=== PATIENT | male | born 1945 | race Caucasian/White ===

== ENCOUNTER → 2019-10-22 13:55 | Outpatient (BNVA) | payer MEDICARE, OTHER, SELFPAY | PROVIDERS: Family Provider Family Medicine; PCP Family Medicine; Referring Provider Licensed Practical Nurse; Visit Provider Psychiatry & Neurology Neurology | DX: G62.9 Polyneuropathy, unspecified (principal); M54.17 Radiculopathy, lumbosacral region | CPT/HCPCS: 95886; 95911 ==

== ENCOUNTER 2020-02-25 13:41 | Outpatient (RCR) | payer MEDICARE, OTHER, SELFPAY | END 2020-02-28 23:59 | disposition home or self-care (01) | LOC: SPT 13:41 | PROVIDERS: PCP Family Medicine; Referring Provider Specialist; Visit Provider Specialist | DX: Z98.890 Other specified postprocedural states (principal) | CPT/HCPCS: 97161 ==

== ENCOUNTER 2020-02-29 06:00 | Outpatient (RCR) | payer MEDICARE, OTHER, SELFPAY | END 2020-03-29 23:59 | disposition home or self-care (01) | LOC: SPT 06:00 | PROVIDERS: PCP Family Medicine; Visit Provider Specialist | DX: Z98.890 Other specified postprocedural states (principal) | CPT/HCPCS: 97110 ==

== ENCOUNTER 2021-10-09 07:42 | Emergency (ER) | payer MEDICARE, OTHER, SELFPAY ==
[2021-10-09 07:48] VITALS: BP 145/85; PULSE 68; RESP 15; TEMP 36.4; O2SAT 99; BMI 32.1
--- NOTE | 2021-10-09 08:16 | CT_ITS ---
WS: [id number] CT HEAD TECHNIQUE: Noncontrast CT of the head obtained from the skullbase to the vertex. CLINICAL INFORMATION: trauma COMPARISON: None. DLP: 992.[address] scans at [facility] use at least one of these dose optimization techniques: automated e xposure control; mA and/or kV adjustment per patient size (includes targeted exams where dose is matc hed to clinical indication); or iterative reconstruction. FINDINGS: No evidence of intracranial hemorrhage or mass effect. Ventricular system and basal cisterns are vora nt. Moderate small vessel changes with moderate parenchymal volume loss. Chronic lacunar infarcts in basal ganglia. No extra-axial fluid collections. No evidence of mass or mass effect. Normal dhaliwal-whit e differentiation. Paranasal sinuses and mastoid air cells are well aerated. .Normal visualized soft tissues. CT/CT head wo con* [id number] IMPRESSION: 1. No evidence of intracranial hemorrhage or mass effect. 2. Moderate small vessel changes. Moderate parenchymal volume loss. 3. No acute intracranial findings.
--- NOTE | 2021-10-09 08:16 | CT_ITS ---
WS: [id number] CT CHEST TECHNIQUE: Contrast enhanced CT of the chest with coronal and sagittal reformatted images. CLINICAL INFORMATION: chest trauma COMPARISON: None. DLP: 998.[address] scans at [facility] use at least one of these dose optimization techniques: automated e xposure control; mA and/or kV adjustment per patient size (includes targeted exams where dose is matc hed to clinical indication); or iterative reconstruction. FINDINGS: Nondisplaced fracture through the left distal clavicle extending to the sternoclavicular joint. No di splacement. Proximal and mid clavicle appear normal. Right clavicle is incompletely included on this exam. Overlying left chest wall edema.Left scapula appears normal. Lungs are well aerated. No acute pulmonary infiltrates. No focal pneumonia or pleural fluid. Calcifie d granuloma right lower lobe laterally. Coronary calcification. Aortic calcification. Slightly ectati c ascending thoracic aorta measuring 4.4 CM. No mediastinal or hilar lymphadenopathy. No axillary lym phadenopathy. Adrenal glands are normal. Cholecystectomy clips. Hepatomegaly. Normal GE junction. Splenomegaly. Spl enic artery calcification. Hypertrophic changes thoracic spine. Prior postoperative changes laminecto my defects in the lower thoracic spine. CT/CT chest w con* [id number] IMPRESSION: 1. Nondisplaced left clavicular fracture distal clavicle extending to the ster noclavicular joint. Associated subcutaneous edema overlying the left chest wall . 2. No visualized rib fractures. 3. Lungs are well aerated. No pneumothorax or acute pulmonary infiltrates. 4. Prior cholecystectomy. 5. Hepatomegaly and splenomegaly. 6. Slightly ectatic ascending thoracic aorta measuring 4.4 CM. Notified Bhupinder Valdes DO at 10/09/2021 10:12 AM.
--- NOTE | 2021-10-09 08:35 | W.ED.FALL ---
HPI - Fall General: Chief Complaint: Fall Stated Complaint: Fell and hit head and collar bone Time Seen by Provider: 10/09/21 07:54 History of Present Illness: HPI Narrative: 76-year-old male presents emergency room with complaints of swelling and pain on the left upper anterior chest wall. 2 days ago he slipped and fell on the ice he landed on his shoulder and hit the back of his head. He does remember everything that happened there is a brief gap in there he thinks he may have lost consciousness for short period of time he has developed a lot of swelling and major ecchymosis across the upper chest seems to focus at the sternoclavicular joint. He has significant loss of range of motion in his shoulder but no pain is specifically in the shoulder just at the sternoclavicular joint on the left. He also had a small hematoma on the left occipital region that has gone down quite a bit. He has not had any vomiting or diarrhea he still cannot recall the actual fall. MD complaint: fall Onset (ago): day(s) (2) Fall from: standing Place fall occurred: home Loss of consciousness: Unsure Prolonged down time: unclear Symptoms prior to fall: none Context: tripped/slipped Location of injury: head Location of injury - extremities: Left: shoulder (Left sternoclavicular) Severity: moderate Quality: aching Associated symptoms-after fall: Reports chest pain; Denies abdominal pain, confusion, difficulty walking, headache(s), hematuria, lightheadedness, neck pain, numbness, short of breath, vertigo or weakness Review of Systems Const: Denies: fever(s), chills, body aches, change in appetite, fatigue or malaise ENMT: Denies: throat pain, ear or mastoid pain, nasal discharge or nasal congestion Card: Reports: chest pain; Denies: lightheadedness Resp: Denies: dyspnea, productive cough or non-productive cough GI: Denies: abdominal pain : Denies: hematuria Musc: Denies: neck pain Skin/Breast: Denies: rash or pruritus Neuro: Denies: headache(s), difficulty walking, vertigo or confusion PFS ED PFSH: Medical History (Updated 10/09/21 @ 10:13 by Bhupinder Valdes DO) Colon cancer Hypercholesterolemia Hypertension Spondylolisthesis, lumbar region Surgical History Hx of cholecystectomy Hx of decompressive lumbar laminectomy (~2016) L3-4, L4-[address] Patterson Family History Mother Cancer Father Hypertension Grandfather Hypertension Social History Smoking and tobacco status: former smoker Alcohol intake: current Alcohol intake frequency: holidays/special occasions only Lives independently: Yes Household members: spouse Marital status: Current occupational status: employed History of recent travel: No Physical Exam Const: COMMON NORMALS: no acute distress GENERAL APPEARANCE: cooperative and comfortable ORIENTATION/CONSCIOUSNESS: Yes awake, Yes oriented to person, Yes oriented to place and Yes oriented to time HENMT: COMMON NORMALS: normocephalic, atraumatic, hearing grossly normal bilaterally, external ears normal, EAC's normal, TM's normal bilaterally, Normal nasal mucous membranes and turbinates present, moist oral mucous membranes and oropharynx normal HEAD & SCALP: normocephalic and atraumatic NOSE: Normal nasal mucous membranes and turbinates present EXTERNAL EAR: Yes external ears normal EXTERNAL AUDITORY CANAL: EAC's normal TYMPANIC MEMBRANE: TM's normal bilaterally Eye: COMMON NORMALS: Equal, round and reactive pupils present, EOMs intact bilaterally, conjunctivae normal and no scleral icterus CONJUNCTIVA: Yes conjunctivae normal PUPIL: Yes Equal, round and reactive pupils present Neck/C-Spine: COMMON NORMALS: full ROM, no lymphadenopathy, supple and no JVD Chest: OTHER: Ecchymosis and swelling at the left sternoclavicular joint. No palpable deformity or crepitus of the left clavicle. Shoulder has limited range of motion with active motion but no obvious deformity neurovascularly bilaterally the upper extremities are intact. Resp: COMMON NORMALS: normal respiratory effort, No retractions, No use of accessory muscles and clear to auscultation bilaterally AUSCULTATION: clear to auscultation bilaterally Cardio: COMMON NORMALS: no JVD, regular rate, regular rhythm and No murmurs present (Cardio) RATE: regular rate RHYTHM: regular rhythm GI: COMMON NORMALS: Soft to palpation and No hepatosplenomegaly present AUSCULTATION: Yes normoactive bowel sounds PALPATION: Yes Soft to palpation, No Tenderness to palpation present (GI), No Guarding due to palpation present (GI) and Yes No hepatosplenomegaly present Extremity: COMMON NORMALS: normal to inspection, capillary refill normal, no clubbing, cyanosis or edema, no calf tenderness and no pedal edema Neuro: SENSORIUM/ORIENTATION: Yes oriented to person, Yes oriented to place and Yes oriented to time Skin: COMMON NORMALS: no rashes or lesions noted GENERAL SKIN EXAM: no rashes or lesions noted Course Vital Signs: Vital signs: Vital Signs Temperature 97.6 F 10/09/21 07:48 Pulse Rate 64 10/09/21 10:33 Respiratory Rate 16 10/09/21 10:33 Blood Pressure 135/80 10/09/21 10:33 Pulse Oximetry 98 10/09/21 10:33 MDM - Fall MDM Narrative: Medical decision making narrative: Labs and imaging reviewed CT confirms proximal left clavicle fracture. He did place some heat on at home which probably exacerbated the hematoma. Device placed ice left arm sling follow-up with Ortho hydrocodone for pain any worsening problems return to the emergency room. Lab Data: Labs: Lab Results 10/09/21 10/09/21 08:41 08:41 WBC 6.3 10^3/uL 10^3/ uL (4.0-10.0) RBC 4.49 10^6/uL 10^6 /uL (4.1-5.3) Hgb 14.5 g/dL g/dL (11.7-16.6) Hct 42.7 % % (42.0-52.0) MCV 95.1 fl H fl (80-94) MCH 32.3 pg pg (28.0-34.0) MCHC 34.0 g/dL g/dL (30.0-36.0) RDW 12.1 % % (12.1-15.1) Plt Count 152 10^3/cmm 10^3 /cmm (130-400) MPV 10.4 fL fL (7.4-10.4) Neut % (Auto) 78.3 % % Lymph % (Auto) 13.8 % % [place] % (Auto) 5.9 % % Eos % (Auto) 1.4 % % Baso % (Auto) 0.3 % % Neut # (Auto) 4.94 10^3/uL 10^3 /uL (1.8-7.7) Lymph # (Auto) 0.9 10^3/uL 10^3/ uL (0.8-4.8) [place] # (Auto) 0.4 10^3/uL 10^3/ uL (0.2-0.9) Eos # (Auto) 0.1 10^3/uL 10^3/ uL (0.0-0.8) Baso # (Auto) 0.0 10^3/uL 10^3/ uL (0.0-0.1) Nucleated RBC % (a uto) 0 % % Nucleated RBCs # 0.0 /100WBC /100W BC Sodium 138 mmol/L mmol/L (136-145) Potassium 4.3 mmol/L mmol/L (3.5-5.1) Chloride 102 mmol/L mmol/L (98-107) Carbon Dioxide 23 mmol/L mmol/L (22-29) Anion Gap 17.3 (5-19) BUN 13 mg/dL mg/dL (8-23) Creatinine 0.7 mg/dL mg/dL (0.7-1.2) GFR Calculation Not Reportable Glucose 118 mg/dL H mg/dL (65-115) Calculated Osmolal ity 287 mOsm/kg mOsm/ kg (285-295) Calcium 8.4 mg/dL L mg/dL (8.5-10.5) Discharge Plan Discharge Patient Disposition: Home Clinical Impression: Closed left clavicular fracture Condition: Stable Prescriptions: New hydrocodone-acetaminophen 5-325 mg tablet 1 tab PO Q6H PRN (Reason: pain) Qty: 20 RF: 0 No Action lisinopril 5 mg tablet 5 mg PO QAM RF: 0 baclofen 10 mg tablet 10 mg PO BEDTIME RF: 0 loperamide 2 mg capsule 14 mg PO BID RF: 0 multivitamin Tablet 1 tab PO DAILY RF: 0 meloxicam 15 mg tablet 15 mg PO BEDTIME RF: 0 Discharge Orders: Discharge ED (Routine); Ordered 10/09/21 Ordered By: Bhupinder Valdes Referrals: Nuzhat Kingsley DO [Primary Care Provider] - Discharge Diet: Usual diet Discharge Activity: Limit activity as instructed Patient Instructions: Opioid Safety Activity Restrictions/Additional Instructions: Arm sling for the left arm. Hydrocodone for pain. Case management make arrangements for you to follow-up with orthopedics for the clavicle fracture. Coding Level of Care Code ED Certified Registered Locksmith for Alber Fwharleen Exam Comprehensive
[2021-10-09 08:44] VITALS: PULSE 69; RESP 16; O2SAT 96
[2021-10-09 09:00] LABS: Basophils % 0.3 %; Eosinophils # 0.1 10^3/uL (0.0-0.8); Eosinophils % 1.4 %; Hematocrit 42.7 % (42.0-52.0); Hemoglobin 14.5 g/dL (11.7-16.6); Lymphocytes # 0.9 10^3/uL (0.8-4.8); Lymphocytes % 13.8 %; Mean Corpuscular Hemoglobin 32.3 pg (28.0-34.0); Mean Corpuscular Volume 95.1 fl (80-94); Mean Platelet Volume 10.4 fL (7.4-10.4); Monocytes # 0.4 10^3/uL (0.2-0.9); Monocytes % 5.9 %; Neutrophils # 4.94 10^3/uL (1.8-7.7); Neutrophils % 78.3 %; Nucleated Red Blood Cells % 0 %; Platelet Count 152 10^3/cmm (130-400); Red Blood Count 4.49 10^6/uL (4.1-5.3); Red Cell Distribution Width 12.1 % (12.1-15.1); White Blood Count 6.3 10^3/uL (4.0-10.0)
[2021-10-09 09:18] LABS: Blood Urea Nitrogen 13 mg/dL (8-23); Calcium 8.4 mg/dL (8.5-10.5); Carbon Dioxide 23 mmol/L (22-29); Chloride 102 mmol/L (98-107); Creatinine Clr Calc Pharmacy 103.5554; Glucose 118 mg/dL (65-115); Osmolality Calculated 287 mOsm/kg (285-295); Sodium 138 mmol/L (136-145)
[2021-10-09 09:23] LABS: Anion Gap 17.3 (5-19); Potassium 4.3 mmol/L (3.5-5.1)
[2021-10-09] MEDS: iohexol 300 mg/mL 100 mL Btl IV (09:46)
--- NOTE | 2021-10-09 09:58 | PC.PHAR ---
PT STATES HE TAKES CARE OF HIS OWN MEDICATIONS-PT STATES HE STOP TAKING THE CYMBALTA 60MG IN JUN EXT MED HISTORY SHOWS LAST FILLED 08/04/21 90D/S
[2021-10-09 10:33] VITALS: BP 135/80; PULSE 64; RESP 16; O2SAT 98
--- NOTE | 2021-10-11 10:47 | DCPLANNER ---
erp project manager had message to schedule a follow up appointment for patient with ortho. erp project manager called the ortho clinic, spoke with Melody, gave clinic patients information. erp project manager was told that patients information would be printed and reviewed. Clinic will call patient with appointment information.
--- NOTE | 2021-10-13 07:37 | DCPLANNER ---
Addendum entered by Marielle Prater 11/02/21 15:07: Patient had a follow up appointment scheduled for 10.17.[address] Kelly at [facility] - patient did attend appointment. Original Note: Patient has a follow up appointment scheduled for Sunday, October 17, 2021 at 8:[address] Kelly. Clinic will call patient with appointment information.
== END 2021-10-09 10:34 | disposition home or self-care (01) ==
PROVIDERS: Emergency Provider Family Medicine; PCP Family Medicine
DX: S42.002A Fracture of unspecified part of left clavicle, initial encounter for closed fracture (principal); Z85.038 Personal history of other malignant neoplasm of large intestine; I10 Essential (primary) hypertension; Z87.891 Personal history of nicotine dependence; W00.0XXA Fall on same level due to ice and snow, initial encounter
CPT/HCPCS: 70450; 71260; 80048; 85025; 99283; Q9967

== ENCOUNTER → 2021-10-17 08:43 | Outpatient (BNVA) | payer MEDICARE, OTHER, SELFPAY | PROVIDERS: PCP Family Medicine; Referring Provider Family Medicine; Visit Provider Orthopaedic Surgery | DX: S42.002A Fracture of unspecified part of left clavicle, initial encounter for closed fracture (principal); X58.XXXA Exposure to other specified factors, initial encounter | CPT/HCPCS: 73000 ==

== ENCOUNTER 2022-09-09 07:36 | Emergency (ER) | payer MEDICARE, OTHER, SELFPAY ==
[2022-09-09 07:40] VITALS: BP 163/92; PULSE 58; RESP 16; TEMP 36.5; O2SAT 98; BMI 32.7
--- NOTE | 2022-09-09 07:53 | ECG_ITS ---
[facility] Test Date: 2022-09-09 Pat Name: Figueroa Birmingham Department: Room: Gender: Male Bellmaker: : 1945 Requested By: Lucas Oropeza Order Number: [id number] Reading MD: Henry Washington M.D. Measurements Intervals Marks Rate: 56 P: 33 RI: 157 QRS: -33 QRSD: 117 T: 56 QT: 445 QTc: 432 Interpretive Statements SINUS BRADYCARDIA LEFT AXIS DEVIATION [QRS AXIS < -30] MODERATE INTRAVENTRICULAR CONDUCTION DELAY [110+ ms QRS DURATION] No previous ECG available for comparison Electronically Signed On 09-09-2022 12:53:27 ROVING WINDER by Henry Washington M.D. [id number]
--- NOTE | 2022-09-09 08:09 | W.ED.FALL ---
HPI - Fall General: Chief Complaint: Fall Stated Complaint: fall, back and head injury Time Seen by Provider: 09/09/22 08:09 History of Present Illness: Mr. Birmingham is a 77-year-old gentleman with history of back surgeries, hypertension, hyperlipidemia, neuropathy presenting to the emergency department due to fall with back and head pain. He reports fall occurred approximately 9 PM yesterday evening and was from standing. He believes that he got his legs caught up in the rug and fell mostly backwards and to the side striking multiple objects in his back and head on the way down. Does not think that he lost consciousness and did not have prolonged downtime. He did immediately had pain which has progressively worsened primarily in the bilateral flanks and back region. Intensity symptoms is moderate and severe with movement especially twisting. No other specific changes in health, exacerbating, or alleviating factors identified. Onset (ago): hour(s) Fall from: standing Fall witnessed: no Place fall occurred: home Loss of consciousness: None Prolonged down time: no Symptoms prior to fall: none Context: tripped/slipped Location of injury: back Severity: severe Quality: stabbing Review of Systems General: Reports: 10 or more systems reviewed and unremarkable except in HPI and below PFSH ED PFSH: Medical History Arthritis Colon cancer Hypercholesterolemia Hypertension Spondylolisthesis, lumbar region Strain of right elbow and forearm Surgical History Hx of cholecystectomy Hx of decompressive lumbar laminectomy (~2015) L3-4, L4-[address] Patterson Family History Mother Cancer Father Hypertension Grandfather Hypertension Social History Smoking and tobacco status: former smoker Alcohol intake: current Alcohol intake frequency: holidays/special occasions only Lives independently: Yes Household members: spouse Marital status: Current occupational status: employed History of recent travel: No Physical Exam Const: COMMON NORMALS: alert GENERAL APPEARANCE: cooperative and well developed HENMT: COMMON NORMALS: normocephalic and atraumatic HEAD & SCALP: normocephalic and atraumatic THROAT: posterior oropharynx normal OTHER: No gaona signs or raccoon eyes. No hemotympanum. No otorrhea or rhinorrhea. Jaw alignment normal. Dentition baseline. No obvious bony step-offs. No septal hematoma. No evidence of ocular entrapment. Eye: COMMON NORMALS: conjunctivae normal CONJUNCTIVA: Yes conjunctivae normal SCLERA: sclerae normal Neck/C-Spine: COMMON NORMALS: supple GENERAL: Yes trachea midline Resp: COMMON NORMALS: normal respiratory effort EFFORT & INSPECTION: Yes able to speak in complete sentences Cardio: COMMON NORMALS: regular rate and regular rhythm RATE: regular rate RHYTHM: regular rhythm GI: COMMON NORMALS: Soft to palpation PALPATION: Yes Soft to palpation and No Tenderness to palpation present (GI) PERCUSSION: normal to percussion Back/Pelvis: COMMON NORMALS: no thoracic nor lumbar tenderness OTHER: Surgical scars well-healed Extremity: GENERAL: Yes normal exam except as noted and No edema Neuro: COMMON NORMALS: moves all extremities SENSORIUM/ORIENTATION: Yes alert and No Orientation impaired OTHER: Baseline bilateral lower extremity neuropathy Psych: COMMON NORMALS: mental status grossly normal and Normal thought process present THOUGHT PROCESS: Normal thought process present Course Vital Signs: Vital signs: Vital Signs Temperature 97.7 F 09/09/22 07:40 Pulse Rate 74 09/09/22 12:15 Respiratory Rate 16 09/09/22 12:15 Blood Pressure 144/71 09/09/22 12:15 Pulse Oximetry 96 09/09/22 12:15 Oxygen Delivery Me thod 09/09/22 07:40 MDM - Fall Medical Decision Making 77-year-old gentleman presenting with fall last night and back pain. Exam as above. Head to toe exam performed. EKG shows sinus rhythm, no STEMI, interventricular conduction delay present. No significant hematologic or metabolic abnormalities Given physical exam findings CT imaging is warranted. CTs negative for acute traumatic injury. Patient feels improved with analgesia and muscle spasm medication. He is able to ambulate. Most likely etiology of patient's symptoms is soft tissue injury related to fall. The results of ED evaluation were discussed with the patient including prescriptions and/or symptomatic cares (if applicable) including appropriate and responsible use, followup plan, and return precautions. The patient verbalized understanding and felt safe for discharge. Medical Records I reviewed the patient's medical records. Lab Data I reviewed the patient's lab results. 09/09/22 09:07 09/09/22 09:07 Radiology Impressions Chest/Abdomen/Pelvis CT 09/09/22 08:13 IMPRESSION: 1. No CT evidence of thoracic post-traumatic injury. 2. 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 3. Moderate to severe left anterior descending coronary arterial atherosclerotic vascular calcifications. IMPRESSION: 1. No CT evidence of abdominal or pelvic posttraumatic injury. 2. Postsurgical changes status post AP resection. Left pelvic colostomy. 3. Postsurgical changes of the spine, as noted above. Cervical Spine CT 09/09/22 08:16 IMPRESSION: 1. No acute fracture or traumatic malalignment identified within the cervical spine. 2. Prominent multilevel degenerative changes in the cervical spine. 3. Chronic incompletely healed fracture of the medial left clavicle. COMMENTS: Consistent with the [employer]'s Incidental Findings Committee white paper (J Am Aliza Radiol 2015): In patients aged 35 years and older with an incidental thyroid nodule equal to or greater than 1.[address], MRI or extrathyroidal US, further evaluation with dedicated thyroid US is recommended for patients with normal life expectancy and without comorbidities. For smaller nodules without suspicious features, no further evaluation or follow up is recommended. Head CT 09/09/22 08:16 IMPRESSION: No acute intracranial abnormality. Laboratory Results WBC 6.4 10^3/uL (4.0-10.0) 09/09/22 09:07 RBC 4.30 10^6/uL (4.1-5.3) 09/09/22 09:07 Hgb 14.0 g/dL (11.7-16.6) 09/09/22 09:07 Hct 42.0 % (42.0-52.0) 09/09/22 09:07 MCV 97.7 fl (80-94) H 09/09/22 09:07 MCH 32.6 pg (28.0-34.0) 09/09/22 09:07 MCHC 33.3 g/dL (30.0-36.0) 09/09/22 09:07 RDW 12.2 % (12.1-15.1) 09/09/22 09:07 Plt Count 154 10^3/cmm (130-400) 09/09/22 09:07 MPV 10.1 fL (7.4-10.4) 09/09/22 09:07 Neut % (Auto) 78.8 % 09/09/22 09:07 Lymph % (Auto) 13.7 % 09/09/22 09:07 [place] % (Auto) 5.1 % 09/09/22 09:07 Eos % (Auto) 1.4 % 09/09/22 09:07 Baso % (Auto) 0.5 % 09/09/22 09:07 Neut # (Auto) 5.07 10^3/uL (1.8-7.7) 09/09/22 09:07 Lymph # (Auto) 0.9 10^3/uL (0.8-4.8) 09/09/22 09:07 [place] # (Auto) 0.3 10^3/uL (0.2-0.9) 09/09/22 09:07 Eos # (Auto) 0.1 10^3/uL (0.0-0.8) 09/09/22 09:07 Baso # (Auto) 0.0 10^3/uL (0.0-0.1) 09/09/22 09:07 Nucleated RBC % (auto) 0 % 09/09/22 09:07 Nucleated RBCs # 0.0 /100WBC 09/09/22 09:07 Sodium 136 mmol/L (136-145) 09/09/22 09:07 Potassium 4.1 mmol/L (3.5-5.1) 09/09/22 09:07 Chloride 102 mmol/L (98-107) 09/09/22 09:07 Carbon Dioxide 24 mmol/L (22-29) 09/09/22 09:07 Anion Gap 14.1 (5-19) 09/09/22 09:07 BUN 21 mg/dL (8-23) 09/09/22 09:07 Creatinine 0.9 mg/dL (0.7-1.2) 09/09/22 09:07 GFR Calculation Not Reportable 09/09/22 09:07 Glucose 117 mg/dL (65-115) H 09/09/22 09:07 Calculated Osmolality 286 mOsm/kg (285-295) 09/09/22 09:07 Calcium 9.1 mg/dL (8.5-10.5) 09/09/22 09:07 Discharge Plan Discharge Patient Disposition: Home Clinical Impression: Fall, Back pain Condition: Stable Prescriptions: New Valium 2 mg tablet 2 mg PO QID PRN (Reason: muscle spasm) Qty: 14 0RF No Action lisinopril 5 mg tablet 5 mg PO QAM baclofen 10 mg tablet 10 mg PO BEDTIME loperamide 2 mg capsule 14 mg PO BID multivitamin Tablet 1 tab PO DAILY meloxicam 15 mg tablet 15 mg PO BEDTIME Discharge Orders: Discharge ED (Routine); Ordered 09/09/22 Ordered By: Jeff Norwood Referrals: Nuzhat Kingsley DO [Primary Care Provider] - Discharge Diet: Usual diet Discharge Activity: Increase activity as tolerated Activity Restrictions/Additional Instructions: Thank you for visiting the emergency department. You were seen and evaluated for back pain after fall. No acute traumatic injuries were identified on CT scan therefore the most likely cause of your symptoms is soft tissue injury. You may use [id number] medications such as acetaminophen and ibuprofen for pain however please do not exceed the daily recommended dosage as listed on the packaging and please keep in mind that many namebrand medications contain the same active ingredients. I will prescribe Valium, please use this cautiously for muscle spasms and back pain. Please watch for side effects. Return to the emergency department for uncontrolled symptoms or anything else that you are concerned about a feel needs emergency department evaluation. As discussed you do have a thyroid nodule which requires further evaluation with ultrasound, this can be ordered by your primary care provider. Your prostate was also noted to be mildly enlarged, you should discuss this with your primary care provider as well. Coding Level of Care Code ED Glaze Carrier for Chg Fwd Exam Comprehensive
--- NOTE | 2022-09-09 08:13 | CTR_ITS ---
PROCEDURE INFORMATION: Exam: CT Chest With Contrast; Diagnostic Exam date and time: 09/09/2022 10:08 AM Age: 77 years old Clinical indication: Injury or trauma; Fall; Generalized; Blunt trauma (contusions or hematomas); Injury date: Yesterday; Prior surgery; Surgery date: 6+ months; Surgery type: Colonostomy. Gb; Patient HX: HX colon CA 2000; Additional info: Fall, back and flank pain TECHNIQUE: Imaging protocol: Diagnostic computed tomography of the chest with contrast. Radiation optimization: All CT scans at this facility use at least one of these dose optimization techniques: automated exposure control; mA and/or kV adjustment per patient size (includes targeted exams where dose is matched to clinical indication); or iterative reconstruction. Contrast material: OMNI 350; Contrast volume: 100 ml; Contrast route: INTRAVENOUS (IV); COMPARISON: CT chest w con* [id number] 10/09/2021 9:39 AM RADIATION DOSE METRICS: Total DLP (mGy-cm): 1697.18 FINDINGS: Trachea: The airway is normal. Lungs: There are normal lung volumes. There are no areas of consolidation or interstitial lung disease. There are no pulmonary contusions. Pleural spaces: There are no pleural effusions or pneumothorax. Heart: The heart is unremarkable without pericardial effusion. Moderate to severe left coronary arterial atherosclerotic vascular calcifications. Lymph nodes: No enlarged lymph nodes. Vasculature: The central pulmonary arteries appear unremarkable. The peripheral pulmonary arteries are not well assessed. The superior vena cava appears unremarkable.. The thoracic aorta appears unremarkable. No aortic aneurysm. The great vessels appear unremarkable. There is no CT evidence of traumatic mediastinal hematoma or vascular injury. 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 There is 0.3 cm anterior positioning of the distal fracture fragment. The sternoclavicular articulation is intact. There are no sternal fractures noted. There are no definite thoracic spine, rib or other acute osseous abnormalities seen. Medium-sized confluent degenerative osteophytes are seen throughout the thoracic spine. Soft tissues: Unremarkable. PROCEDURE INFORMATION: Exam: CT Abdomen And Pelvis With Contrast Exam date and time: 09/09/2022 10:08 AM Age: 77 years old Clinical indication: Injury or trauma; Fall; Generalized; Blunt trauma (contusions or hematomas); Injury date: Yesterday; Prior surgery; Surgery date: 6+ months; Surgery type: Colonostomy. Gb; Patient HX: HX colon CA 2000; Additional info: Fall, back and flank pain TECHNIQUE: Imaging protocol: Computed tomography of the abdomen and pelvis with contrast. Radiation optimization: All CT scans at this facility use at least one of these dose optimization techniques: automated exposure control; mA and/or kV adjustment per patient size (includes targeted exams where dose is matched to clinical indication); or iterative reconstruction. Contrast material: OMNI 350; Contrast volume: 100 ml; Contrast route: INTRAVENOUS (IV); COMPARISON: CT chest w con* [id number] 10/09/2021 9:39 AM RADIATION DOSE METRICS: Total DLP (mGy-cm): 1697.18 FINDINGS: Liver: Normal liver attenuation. No mass. No CT evidence of post traumatic injury. Gallbladder and bile ducts: Status post prior cholecystectomy. No biliary ductal dilatation. Pancreas: Some atrophic changes of the pancreas. No ductal dilatation. No CT evidence of post traumatic injury. Spleen: Normal splenic parenchymal attenuation. No splenomegaly. No CT evidence of post traumatic injury. Adrenal glands: Normal CT appearance of the adrenals. No mass. Kidneys and ureters: Normal renal contour. No mass seen. No hydronephrosis. No CT evidence of post traumatic injury. Stomach and bowel: The non-contrast opacified stomach is not well distended with relative gastric fold prominence. Assessment is limited. . The noncontrast opacified loops of small bowel appear unremarkable. The noncontrast opacified loops of colon show [id number] gas and fecal material in the ascending colon, transverse colon and descending colon. Postsurgical changes are seen status post AP resection. The lack of orally administered contrast material limits assessment. Appendix: No evidence of appendicitis. Intraperitoneal space: No free air. No significant fluid collection. Multiple surgical clips are seen in the pelvis. 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 Vasculature: No abdominal aortic aneurysm. IVC and portal venous structures are unremarkable. Lymph nodes: No enlarged lymph nodes. Urinary bladder: Suspected postsurgical changes of the bladder. Recommend correlation with surgical history. No bladder debris. No wall thickening. Reproductive: The prostate demonstrates mild nonspecific enlargement. The seminal vesicles are normal. Recommend correlation with clinical exam findings and PSA level assessment. Bones/joints: There are no lumbar spine acute osseous abnormalities seen. There are no pelvic or hip acute osseous abnormalities seen. Postsurgical changes are seen status post L3-L5 laminectomies. Moderate bilateral hip degenerative changes are seen. Moderate symphysis pubis and bilateral sacroiliac joint degenerative changes are seen. Medium-sized degenerative osteophytes are seen throughout the lumbar spine. Soft tissues: Unremarkable. CT/CT chest abd pel w con* IMPRESSION: 1. No CT evidence of thoracic post-traumatic injury. 2. 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 3. Moderate to severe left anterior descending coronary arterial atherosclerotic vascular calcifications. IMPRESSION: 1. No CT evidence of abdominal or pelvic posttraumatic injury. 2. Postsurgical changes status post AP resection. Left pelvic colostomy. 3. Postsurgical changes of the spine, as noted above.
--- NOTE | 2022-09-09 08:16 | CTR_ITS ---
PROCEDURE INFORMATION: Exam: CT Head Without Contrast Exam date and time: 09/09/2022 10:00 AM Age: 77 years old Clinical indication: Injury or trauma; Fall; Blunt trauma (contusions or hematomas); Without loss of consciousness; Additional info: Fall, posterior head strike TECHNIQUE: Imaging protocol: Computed tomography of the head without contrast. Radiation optimization: All CT scans at this facility use at least one of these dose optimization techniques: automated exposure control; mA and/or kV adjustment per patient size (includes targeted exams where dose is matched to clinical indication); or iterative reconstruction. COMPARISON: CT head wo con* [id number] 10/09/2021 9:33 AM RADIATION DOSE METRICS: Total DLP (mGy-cm): 1238.86 FINDINGS: Brain: No acute hemorrhage identified. No large territorial areas of hypoattenuation concerning for ischemic infarct identified. No intracranial mass effect. Cerebral ventricles: The ventricles are within normal limits. Paranasal sinuses: The visualized sinuses are unremarkable. Mastoid air cells: The visualized mastoid air cells are well aerated. Bones/joints: The osseous structures are intact. Soft tissues: Unremarkable. CT/CT head wo con* [id number] IMPRESSION: No acute intracranial abnormality.
--- NOTE | 2022-09-09 08:16 | CTR_ITS ---
PROCEDURE INFORMATION: Exam: CT Cervical Spine Without Contrast Exam date and time: 09/09/2022 10:00 AM Age: 77 years old Clinical indication: Injury or trauma; Fall; Blunt trauma; Injury date: Yesterday; Additional info: Fall, neck pain with rom TECHNIQUE: Imaging protocol: Computed tomography of the cervical spine without contrast. Radiation optimization: All CT scans at this facility use at least one of these dose optimization techniques: automated exposure control; mA and/or kV adjustment per patient size (includes targeted exams where dose is matched to clinical indication); or iterative reconstruction. COMPARISON: CT chest w con* [id number] 10/09/2021 9:39 AM RADIATION DOSE METRICS: Total DLP (mGy-cm): 360.6 FINDINGS: Bones/joints: The cervical spine demonstrates a straightened lordotic curvature. Grade 1 anterolisthesis of C6 on C7 by approximally 3 mm. The vertebral bodies maintain normal height. No fracture identified. The intervertebral discs maintain normal height. Multilevel facet arthropathy. Prominent anterior syndesmophytes noted extending from C2-C7. Prominent posterior longitudinal ligament calcification extending from C2-C6. Spinal canal narrowing at C3, C5, and C6. Multilevel [id number] neural foraminal narrowing. Chronic incompletely healed fracture of the medial left clavicle. Lungs: The visualized lung apices are normal. Thyroid: Heterogenous nodule in the left lobe of the thyroid measuring up to 1.8 cm. Soft tissues: No prevertebral soft tissue swelling identified. CT/CT cervical spin wo con* [id number] IMPRESSION: 1. No acute fracture or traumatic malalignment identified within the cervical spine. 2. Prominent multilevel degenerative changes in the cervical spine. 3. Chronic incompletely healed fracture of the medial left clavicle. COMMENTS: Consistent with the [employer]'s Incidental Findings Committee white paper (J Am Aliza Radiol 2015): In patients aged 35 years and older with an incidental thyroid nodule equal to or greater than 1.[address], MRI or extrathyroidal US, further evaluation with dedicated thyroid US is recommended for patients with normal life expectancy and without comorbidities. For smaller nodules without suspicious features, no further evaluation or follow up is recommended.
[2022-09-09 08:59] VITALS: RESP 18
[2022-09-09] MEDS: morphine 4 mg/mL SDV 1 mL IVP (08:59)
[2022-09-09 09:14] LABS: Basophils % 0.5 %; Eosinophils # 0.1 10^3/uL (0.0-0.8); Eosinophils % 1.4 %; Lymphocytes # 0.9 10^3/uL (0.8-4.8); Lymphocytes % 13.7 %; Mean Corpuscular HGB Conc 33.3 g/dL (30.0-36.0); Mean Corpuscular Hemoglobin 32.6 pg (28.0-34.0); Mean Corpuscular Volume 97.7 fl (80-94); Mean Platelet Volume 10.1 fL (7.4-10.4); Monocytes # 0.3 10^3/uL (0.2-0.9); Monocytes % 5.1 %; Neutrophils # 5.07 10^3/uL (1.8-7.7); Neutrophils % 78.8 %; Nucleated Red Blood Cells % 0 %; Platelet Count 154 10^3/cmm (130-400); Red Cell Distribution Width 12.2 % (12.1-15.1); White Blood Count 6.4 10^3/uL (4.0-10.0)
[2022-09-09 09:48] LABS: Anion Gap 14.1 (5-19); Blood Urea Nitrogen 21 mg/dL (8-23); Calcium 9.1 mg/dL (8.5-10.5); Carbon Dioxide 24 mmol/L (22-29); Chloride 102 mmol/L (98-107); Glucose 117 mg/dL (65-115); Osmolality Calculated 286 mOsm/kg (285-295); Potassium 4.1 mmol/L (3.5-5.1); Sodium 136 mmol/L (136-145)
[2022-09-09] MEDS: iohexol 350 mg/mL 500 mL Btl (per mL) IV (10:25)
[2022-09-09] MEDS: acetaminophen 500 mg Tablet 1000 MG PO (11:16)
[2022-09-09] MEDS: diazePAM 2 mg Tablet PO (11:17)
[2022-09-09] MEDS: ketorolac 30 mg/mL INJ 15 MG IVP (11:17)
[2022-09-09 12:15] VITALS: BP 144/71; PULSE 74; RESP 16; O2SAT 96
== END 2022-09-09 12:10 | disposition home or self-care (01) ==
PROVIDERS: Emergency Provider Emergency Medicine; PCP Family Medicine
DX: M54.9 Dorsalgia, unspecified (principal); Z85.038 Personal history of other malignant neoplasm of large intestine; I10 Essential (primary) hypertension; Z87.891 Personal history of nicotine dependence; E78.5 Hyperlipidemia, unspecified
CPT/HCPCS: 70450; 71260; 72125; 74177; 80048; 85025; 93005; 96374; 96375; 99285; J1885; J2270; Q9967

== ENCOUNTER 2023-01-07 14:21 | Outpatient (CLI) | payer MEDICARE, OTHER, SELFPAY ==
--- NOTE | 2023-01-07 14:39 | US_ITS ---
WS: [id number] THYROID ULTRASOUND HISTORY: VERTIGO/HEARING LOSS IN BOTH EARS COMPARISON: CT 09/09/2022 Right lobe: 2.4 cm x 1.4 cm x 5.3 cm (w x ap x l). Volume: 9.7 cm3. Normal size gland. Solid heterogeneous nodule in the mid gland with mild increased vascularity measur es 10 x 8 x 8 mm. There are a few tiny cystic components to this nodule. No echogenic foci. Left lobe: 2.5 cm x 1.9 cm x 5.2 cm (w x ap x l). Volume: 12.7 cm3. Enlarged gland with a complex cystic nodule in the mid gland. Cystic nodule with a mural nodule area there is increased vascularity. Cystic and solid components of this nodule. Largest nodule measures 2 .0 x 1.5 x 1.7 cm. Isthmus: 0.4 cm. US/US thyroid [id number] IMPRESSION: 1. Bilateral thyroid nodules. The most concerning nodule in the mid LEFT thyro id. There is a solid mural nodule within a cyst. Recommend fine-needle aspirati on by ultrasound. 2. No biopsy recommended of the RIGHT thyroid nodules. Yearly ultrasound evalu ation.
== END 2023-01-07 14:22 | disposition home or self-care (01) ==
PROVIDERS: PCP Family Medicine; Visit Provider Family Medicine
DX: R42 Dizziness and giddiness (principal); H91.93 Unspecified hearing loss, bilateral; E04.2 Nontoxic multinodular goiter
CPT/HCPCS: 76536

== ENCOUNTER → 2023-03-04 07:57 | Outpatient (BNVA) | payer MEDICARE, OTHER, SELFPAY | PROVIDERS: PCP Family Medicine; Referring Provider Family Medicine; Visit Provider Internal Medicine | DX: E04.1 Nontoxic single thyroid nodule (principal); E04.2 Nontoxic multinodular goiter; J38.00 Paralysis of vocal cords and larynx, unspecified | CPT/HCPCS: 36415; 84439; 84443; 99204 ==

== ENCOUNTER 2023-05-07 07:02 | Emergency (ER) | payer MEDICARE, OTHER, SELFPAY ==
--- NOTE | 2023-05-07 07:01 | XRR_ITS ---
PROCEDURE INFORMATION: Exam: XR Chest Exam date and time: 05/07/2023 7:18 AM Age: 77 years old Clinical indication: Device placement; Ett placement (vent status); Additional info: CVA TECHNIQUE: Imaging protocol: Radiologic exam of the chest. Views: 1 view. COMPARISON: CT chest abdpel w/*[id number] 09/09/2022 10:08 AM FINDINGS: Tubes, catheters and devices: An endotracheal tube is present with the tip about 6 cm above the chance. Lungs: Unremarkable. No consolidation. Pleural spaces: Unremarkable. No pleural effusion. No pneumothorax. Heart/Mediastinum: Unremarkable. No cardiomegaly. Bones/joints: Unremarkable. XR/XR chest 1V portable [id number] IMPRESSION: No acute cardiopulmonary abnormality.
--- NOTE | 2023-05-07 07:01 | CTR_ITS ---
PROCEDURE INFORMATION: Exam: CT Head Without Contrast Exam date and time: 05/07/2023 6:58 AM Age: 77 years old Clinical indication: Stroke-like symptoms; Altered mental status/memory loss; Additional info: CVA TECHNIQUE: Imaging protocol: Computed tomography of the head without contrast. Radiation optimization: All CT scans at this facility use at least one of these dose optimization techniques: automated exposure control; mA and/or kV adjustment per patient size (includes targeted exams where dose is matched to clinical indication); or iterative reconstruction. Other technique: STROKE PROTOCOL was implemented. REPORTING DATA: Count of CT and Cardiac NM exams in prior 12 months: This patient has received 3 known CTs and 0 known cardiac nuclear medicine studies in the 12 months prior to the current study. COMPARISON: CT head wo con* [id number] 09/09/2022 10:00 AM RADIATION DOSE METRICS: Total DLP (mGy-cm): 964.88 FINDINGS: Brain: There is a large intraparenchymal hematoma in the left frontal parietal region extending into the basal ganglia and thalamus. It measures about 11 x 6 cm in axial diameter and has a volume of approximately 175 cc. There is surrounding low-density edema and prominent mass effect. The midline structures are shifted to the right side by 2 cm. There is compression of the left lateral ventricle. There is blood in a narrowed 3rd ventricle. Cerebral ventricles: See Brain finding. Paranasal sinuses: Visualized sinuses are unremarkable. No fluid levels. Mastoid air cells: Visualized mastoid air cells are well aerated. Bones/joints: Unremarkable. No acute fracture. Soft tissues: Unremarkable. CT/CT head wo con* [id number] IMPRESSION: Large acute intraparenchymal hematoma in the left frontal parietal region extending into the basal ganglia, thalamus and 3rd ventricle. There is prominent mass effect with surrounding edema with about 2 cm of midline shift to the right side.
[2023-05-07] MEDS: vecuronium 10 mg SDV IVP (07:10)
[2023-05-07] MEDS: etomidate 2 mg/mL INJ SDV 10 mL 20 MG IVP (07:10)
[2023-05-07] MEDS: nicardipine 20 MG/200 ML PREMIX 150 MG IV ×2 (07:15→08:45)
--- NOTE | 2023-05-07 07:17 | ED_ITS ---
HPI - Altered Mental Status General: Chief Complaint: Neuro Symptoms/Deficit Stated Complaint: Stroke Alert Source: patient and EMS Mode of arrival: EMS Limitations: altered mental status History of Present Illness: 77-year-old male who per EMS states that he woke up at 03/05/1931 he started having slurred speech headache and left-sided weakness when EMS arrived he states that he was weak slurring his words and then in transport he has become progressively more altered patient currently has decorticate posturing is minimally responsive to painful stimuli not answering any questions or following any commands at this time Review of Systems General: Reports: ROS unobtainable due to mental status [facility] ED PFSH: Medical History Arthritis Colon cancer Hypercholesterolemia Hypertension Spondylolisthesis, lumbar region Strain of right elbow and forearm Surgical History Hx of cholecystectomy Hx of decompressive lumbar laminectomy (~2015) L3-4, L4-[address] Patterson Family History Mother Cancer Father Hypertension Grandfather Hypertension Social History Smoking and tobacco status: former smoker Alcohol intake: current Alcohol intake frequency: holidays/special occasions only Substance/Drug Use: never Lives independently: Yes Household members: spouse Marital status: Current occupational status: employed Physical Exam Const: COMMON NORMALS: negative for patient oriented x3 GENERAL APPEARANCE: in distress and ill appearing HENMT: COMMON NORMALS: normocephalic and atraumatic HEAD & SCALP: normocephalic and atraumatic Eye: COMMON NORMALS: negative for EOMs intact bilaterally Neck/C-Spine: COMMON NORMALS: full ROM Chest: COMMONS NORMALS: normal inspection of the chest Resp: COMMON NORMALS: normal respiratory effort Cardio: COMMON NORMALS: regular rate and regular rhythm RATE: regular rate RHYTHM: regular rhythm GI: INSPECTION: Yes normal to inspection Extremity: COMMON NORMALS: normal to inspection Neuro: COMMON NORMALS: negative for patient oriented x3 OTHER: Patient is unresponsive at this time he is got decorticate posturing not following any commands Skin: COMMON NORMALS: no rashes or lesions noted GENERAL SKIN EXAM: no rashes or lesions noted Procedures Intubation Time out performed: Yes sedative: Etomidate Mg Given: 20 paralytic: Vecuronium Mg Given: 10 Laryngoscope: Kitty ET Tube Size: 8 ET Tube Uncuffed: No Tube Secured Depth (cm): 24 Tube Secured Location: lips Tube Placement Confirmation: visualized tube passing through cords, equal breath sounds bilaterally, no breath sounds over epigastrium and confirmation by capnometry Patient Tolerated Procedure: well Intubation Complications: none Course Vital Signs: Vital signs: Vital Signs Pulse Rate 101 H 05/07/23 07:38 Respiratory Rate 22 H 05/07/23 07:40 Pulse Oximetry 100 05/07/23 07:40 Oxygen Delivery Me thod Mechanical Ventil ation 05/07/23 07:38 Fraction of Inspir ed Oxygen 100 05/07/23 07:38 MDM - Altered Mental Status Medical Decision Making Patient presents here with very large intracranial hemorrhage patient is intubated he is on a Cardene drip his blood pressure now is 125/62 he is quite hypertensive before transferring to [facility] for higher level of care. Medical Records I reviewed the patient's medical records. Lab Data I reviewed the patient's lab results. 05/07/23 06:45 05/07/23 06:[address] 05/07/23 07:01 IMPRESSION: Large acute intraparenchymal hematoma in the left frontal parietal region extending into the basal ganglia, thalamus and 3rd ventricle. There is prominent mass effect with surrounding edema with about 2 cm of midline shift to the right side. ADDENDUM: 05/07/23 07 THIS REPORT CONTAINS FINDINGS THAT MAY BE CRITICAL TO PATIENT CARE. The findings were verbally communicated via telephone conference with MATEO NAIK at 7:18 AM CDT on 05/07/2023. The findings were acknowledged and understood. Laboratory Results WBC 6.9 10^3/uL (4.0-10.0) 05/07/23 06:45 RBC 4.54 10^6/uL (4.1-5.3) 05/07/23 06:45 Hgb 14.5 g/dL (11.7-16.6) 05/07/23 06:45 Hct 42.6 % (42.0-52.0) 05/07/23 06:45 MCV 93.8 fl (80-94) 05/07/23 06:45 MCH 31.9 pg (28.0-34.0) 05/07/23 06:45 MCHC 34.0 g/dL (30.0-36.0) 05/07/23 06:45 RDW 12.3 % (12.1-15.1) 05/07/23 06:45 Plt Count 144 10^3/cmm (130-400) 05/07/23 06:45 MPV 10.1 fL (7.4-10.4) 05/07/23 06:45 Neut % (Auto) 54.7 % 05/07/23 06:45 Lymph % (Auto) 33.9 % 05/07/23 06:45 Dade % (Auto) 7.0 % 05/07/23 06:45 Eos % (Auto) 3.2 % 05/07/23 06:45 Baso % (Auto) 0.6 % 05/07/23 06:45 Neut # (Auto) 3.75 10^3/uL (1.8-7.7) 05/07/23 06:45 Lymph # (Auto) 2.3 10^3/uL (0.8-4.8) 05/07/23 06:45 Dade # (Auto) 0.5 10^3/uL (0.2-0.9) 05/07/23 06:45 Eos # (Auto) 0.2 10^3/uL (0.0-0.8) 05/07/23 06:45 Baso # (Auto) 0.0 10^3/uL (0.0-0.1) 05/07/23 06:45 Nucleated RBC % (auto) 0 % 05/07/23 06:45 Nucleated RBCs # 0.0 /100WBC 05/07/23 06:45 Critical Care Time Critical Care Time: Critical Care Time: Yes Total Critical Care Time: 45 Attestation: The high probability of a clinically significant, sudden or life threatening deterioration of the patient's neurosystem(s) required my full and direct attention, intervention and personal management. The critical care time is as shown. This time is in addition to time spent performing any reported procedures but includes the following: [x] Data and vital sign review and interpretation [x] Patient assessment, examination and intervention [x] Documentation [x] Medication orders and management Discharge Plan Discharge Condition: Stable Prescriptions: No Action lisinopril 5 mg tablet 5 mg PO QAM baclofen 10 mg tablet 10 mg PO BEDTIME PRN (Reason: Muscle Spasm) loperamide 2 mg capsule 14 mg PO BID multivitamin Tablet 1 tab PO DAILY meloxicam 15 mg tablet 15 mg PO BEDTIME Referrals: Nuzhat Kingsley DO [Primary Care Provider] - Coding Level of Care Code ED Environmental Marketing Representative for [facility]
[2023-05-07] MEDS: hyDRALAzine 20 mg/mL INJ 1 mL 10 MG IVP ×2 (07:21→07:32)
--- NOTE | 2023-05-07 07:36 | PC.PHAR ---
pts verified pts medications-pts states the pt takes baclofen prn ext med history doesnt show when last filled
[2023-05-07 07:38] VITALS: PULSE 101; RESP 18; O2SAT 100
[2023-05-07 07:39] LABS: Basophils % 0.6 %; Eosinophils # 0.2 10^3/uL (0.0-0.8); Eosinophils % 3.2 %; Hematocrit 42.6 % (42.0-52.0); Hemoglobin 14.5 g/dL (11.7-16.6); Lymphocytes # 2.3 10^3/uL (0.8-4.8); Lymphocytes % 33.9 %; Mean Corpuscular Hemoglobin 31.9 pg (28.0-34.0); Mean Corpuscular Volume 93.8 fl (80-94); Mean Platelet Volume 10.1 fL (7.4-10.4); Monocytes # 0.5 10^3/uL (0.2-0.9); Neutrophils # 3.75 10^3/uL (1.8-7.7); Neutrophils % 54.7 %; Nucleated Red Blood Cells % 0 %; Platelet Count 144 10^3/cmm (130-400); Red Blood Count 4.54 10^6/uL (4.1-5.3); Red Cell Distribution Width 12.3 % (12.1-15.1); White Blood Count 6.9 10^3/uL (4.0-10.0)
[2023-05-07] MEDS: propofol 1,000 MG/100 ML INJ 3.44 MG IV ×2 (07:39→08:29)
[2023-05-07 07:40] VITALS: RESP 22; O2SAT 100
[2023-05-07 08:00] VITALS: BP 127/63; PULSE 84; RESP 25; O2SAT 100
[2023-05-07 08:08] LABS: Alanine Aminotransferase 27 U/L (0-41); Albumin Level 4.3 g/dL (3.5-5.2); Alkaline Phosphatase 71 U/L (40-130); Anion Gap 16.8 (5-19); Aspartate Amino Transferase 26 U/L (0-40); Blood Urea Nitrogen 18 mg/dL (8-23); Calcium 8.9 mg/dL (8.5-10.5); Carbon Dioxide 25 mmol/L (22-29); Chloride 103 mmol/L (98-107); Globulin 2.8 g/dL (1.3-4.6); Glucose 168 mg/dL (65-115); Osmolality Calculated 298 mOsm/kg (285-295); Potassium 3.8 mmol/L (3.5-5.1); Sodium 141 mmol/L (136-145); Total Protein 7.1 g/dL (6.6-8.7)
[2023-05-07 08:13] LABS: INR 1.07 (0.8-1.2)
[2023-05-07 08:30] VITALS: BP 124/63; PULSE 89; RESP 16; O2SAT 100
--- NOTE | 2023-05-07 08:38 | PC.NURSE ---
PT initial blood pressure at time of arrival 229/119 cardene started at max rate, approved.
--- NOTE | 2023-05-07 08:46 | PC.NURSE ---
report called to andrei Gan RN by Charge nurse Merissa Luna RN
[2023-05-07 14:21] LABS: Glucose Point of Care 178 mg/dL (70-110)
== END 2023-05-07 08:52 | disposition short-term general hospital (02) ==
PROVIDERS: Emergency Provider Emergency Medicine; PCP Family Medicine
DX: I61.8 Other nontraumatic intracerebral hemorrhage (principal); Z85.038 Personal history of other malignant neoplasm of large intestine; I10 Essential (primary) hypertension; Z87.891 Personal history of nicotine dependence
CPT/HCPCS: 31500; 36416; 51702; 70450; 71045; 80053; 82962; 85025; 85610; 87070; 87205; 94002; 94799; 96365; 96367; 96375; 99291; J0360; J2704; J3010; J3490